=== PATIENT | female | born 1940 | race Caucasian/White ===

== ENCOUNTER → 2021-09-18 11:40 | Outpatient (BNVA) | payer MEDICARE, SELFPAY | PROVIDERS: Family Provider Nurse Practitioner Family; PCP Nurse Practitioner Family; Visit Provider Nurse Practitioner Family | DX: R30.0 Dysuria (principal); J01.00 Acute maxillary sinusitis, unspecified; I10 Essential (primary) hypertension | CPT/HCPCS: 80053; 80061; 84443; 85007; 85027 ==

== ENCOUNTER → 2022-08-25 16:36 | Outpatient (BNVA) | payer MEDICARE, SELFPAY | PROVIDERS: Family Provider Nurse Practitioner Family; PCP Nurse Practitioner Family; Visit Provider Nurse Practitioner Family | DX: I10 Essential (primary) hypertension (principal); N39.0 Urinary tract infection, site not specified; J01.00 Acute maxillary sinusitis, unspecified | CPT/HCPCS: 80053 ==

== ENCOUNTER → 2022-11-20 16:32 | Outpatient (BNVA) | payer MEDICARE, SELFPAY | PROVIDERS: Family Provider Nurse Practitioner Family; PCP Nurse Practitioner Family; Visit Provider Nurse Practitioner Family | DX: N39.0 Urinary tract infection, site not specified (principal); I48.91 Unspecified atrial fibrillation; I10 Essential (primary) hypertension; R00.2 Palpitations | CPT/HCPCS: 80053; 80061; 84443 ==

== ENCOUNTER → 2022-12-08 13:58 | Outpatient (BNVA) | payer MEDICARE, SELFPAY | PROVIDERS: Family Provider Nurse Practitioner Family; PCP Nurse Practitioner Family; Visit Provider Internal Medicine Cardiovascular Disease | DX: I48.91 Unspecified atrial fibrillation (principal); R60.9 Edema, unspecified; R00.2 Palpitations; I10 Essential (primary) hypertension | CPT/HCPCS: 99204 ==

== ENCOUNTER 2022-12-10 12:50 | Observation (INO) | payer MEDICARE, OTHER, SELFPAY ==
[2022-12-10] VITALS (64 sets, daily range): BP systolic 119–157; BP diastolic 70–128; PULSE 63–121; RESP 16–29; TEMP 36.6–36.9; O2SAT 81–98; BMI 29.2
--- NOTE | 2022-12-10 13:02 | ECG_ITS ---
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 Measurements Intervals Gray Rate: 113 P: 0 MS: 0 QRS: 27 QRSD: 86 T: 0 QT: 297 QTc: 409 Interpretive Statements ATRIAL FIBRILLATION WITH RAPID VENTRICULAR RESPONSE LOW QRS VOLTAGE IN PRECORDIAL LEADS [QRS DEFLECTION < 1.0 mV IN CHEST LEADS] NONSPECIFIC T-WAVE ABNORMALITY ABNORMAL RHYTHM ECG INTERPRETATION BASED ON A DEFAULT AGE OF 40 YEARS Compared to ECG 08/26/2018 18:25:49 Sinus rhythm no longer present T-wave abnormality still present Electronically Signed On 12-10-2022 16:47:39 CDT by Mario Longoria M.D. [email or web address] [email or web address].[email or web address]/store/NU/[id number] f
--- NOTE | 2022-12-10 13:07 | ED_ITS ---
HPI - Chest Pain General: Chief Complaint: Chest Pain Stated Complaint: physician sent, chest heavy, had afib last week Time Seen by Provider: 12/10/22 13:06 History of Present Illness: Ms. Rodríguez is an 82-year-old lady with history of hypertension and relatively new diagnosis of atrial fibrillation presenting the emergency department for chest pain. She has a longstanding history of dealing with generalized malaise and occasional palpitations however only recently diagnosed with A-fib. She has been on metoprolol and Xarelto. Last night she had worse pain while lying down which is substernal and radiates to the bilateral upper and lower extremities. Moderate to severe in intensity when present. Currently improved. No other specific changes in health, exacerbating, or alleviating factors identified. Onset (ago): hour(s) Onset: during rest Pain location: substernal Pain radiation: right arm, left arm and other Quality: aching Review of Systems General: Reports: 10 or more systems reviewed and unremarkable except in HPI and below PFSH ED PFSH: Medical History Hypertension Social History Smoking and tobacco status: never smoked Second hand smoke exposure: No Alcohol intake: never Substance/Drug Use: never Caregiver/support person: Yes (family) Lives independently: Yes Marital status: service: No Current occupational status: retired Current gender identity: Female Special lu needs: No Physical Exam Const: COMMON NORMALS: alert GENERAL APPEARANCE: cooperative and well developed HENMT: COMMON NORMALS: normocephalic and atraumatic HEAD & SCALP: normocephalic and atraumatic Eye: COMMON NORMALS: conjunctivae normal CONJUNCTIVA: Yes conjunctivae normal SCLERA: sclerae normal Neck/C-Spine: COMMON NORMALS: supple GENERAL: Yes trachea midline Resp: COMMON NORMALS: clear to auscultation bilaterally EFFORT & INSPECTION: Yes able to speak in complete sentences AUSCULTATION: clear to auscultation bilaterally Cardio: RATE: tachycardic RHYTHM: abnormal rhythm irregularly irregular GI: COMMON NORMALS: Soft to palpation PALPATION: Yes Soft to palpation and No Tenderness to palpation present (GI) Extremity: GENERAL: Yes normal exam except as noted and No edema Neuro: COMMON NORMALS: moves all extremities SENSORIUM/ORIENTATION: Yes alert and No Orientation impaired Psych: COMMON NORMALS: mental status grossly normal and Normal thought process present THOUGHT PROCESS: Normal thought process present Course Vital Signs: Vital signs: Vital Signs Temperature 98.3 F 12/12/22 11:39 Pulse Rate 96 12/12/22 12:40 Respiratory Rate 17 12/12/22 12:40 Blood Pressure 101/63 12/12/22 12:40 Pulse Oximetry 94 12/12/22 12:40 Oxygen Delivery Me thod Room Air 12/12/22 11:39 MDM - Chest Pain Medical Decision Making 82-year-old lady presenting with chest pain and A-fib. Exam as above. Nontoxic. EKG demonstrates atrial fibrillation with rapid ventricular sponsor and nonspecific sensation abnormalities. No STEMI. Labs with no significant hematologic or metabolic abnormalities to explain symptoms. Minimal transaminitis of uncertain etiology. Negative range 2 hour delta troponin but BNP is elevated. Chest x-ray with no lobar consolidation or pneumothorax, mild cardiomegaly. With ultrasound with cholelithiasis though no evidence of cholecystitis. Mild fatty liver. The results of ED evaluation were discussed with the patient including plan for admission due to requirement for level of care not available if discharged to prevent significant worsening/deterioration. Patient agreeable with plan. Discussed with hospitalist service who was agreeable to admit patient. Medical Records I reviewed the patient's medical records. Lab Data I reviewed the patient's lab results. 12/11/22 03:07 12/11/22 03:07 Radiology Impressions Chest X-Ray 12/10/22 13:11 IMPRESSION: No acute findings. Laboratory Results WBC 8.5 10^3/uL (4.0-10.0) 12/10/22 13:21 RBC 4.60 10^6/uL (4.1-5.3) 12/10/22 13:21 Hgb 13.1 g/dL (11.5-15.3) 12/10/22 13:21 Hct 41.3 % (37.0-47.0) 12/10/22 13:21 MCV 89.8 fl (81-99) 12/10/22 13:21 MCH 28.5 pg (28.0-34.0) 12/10/22 13:21 MCHC 31.7 g/dL (30.0-36.0) 12/10/22 13:21 RDW 14.1 % (12.1-15.1) 12/10/22 13:21 Plt Count 186 10^3/cmm (130-400) 12/10/22 13:21 MPV 9.9 fL (7.4-10.4) 12/10/22 13:21 Neut % (Auto) 72.0 % 12/10/22 13:21 Lymph % (Auto) 17.5 % 12/10/22 13:21 [place] % (Auto) 5.3 % 12/10/22 13:21 Eos % (Auto) 4.1 % 12/10/22 13:21 Baso % (Auto) 0.9 % 12/10/22 13:21 Neut # (Auto) 6.14 10^3/uL (1.8-7.7) 12/10/22 13:21 Lymph # (Auto) 1.5 10^3/uL (0.8-4.8) 12/10/22 13:21 [place] # (Auto) 0.5 10^3/uL (0.2-0.9) 12/10/22 13:21 Eos # (Auto) 0.4 10^3/uL (0.0-0.8) 12/10/22 13:21 Baso # (Auto) 0.1 10^3/uL (0.0-0.1) 12/10/22 13:21 Nucleated RBC % (auto) 0 % 12/10/22 13:21 Nucleated RBCs # 0.0 /100WBC 12/10/22 13:21 Sodium 141 mmol/L (136-145) 12/10/22 13:21 Potassium 4.0 mmol/L (3.5-5.1) 12/10/22 13:21 Chloride 104 mmol/L (98-107) 12/10/22 13:21 Carbon Dioxide 26 mmol/L (22-29) 12/10/22 13:21 Anion Gap 15.0 (5-19) 12/10/22 13:21 BUN 19 mg/dL (8-23) 12/10/22 13:21 Creatinine 1.0 mg/dL (0.5-0.9) H 12/10/22 13:21 GFR Calculation Not Reportable 12/10/22 13:21 Glucose 92 mg/dL (65-115) 12/10/22 13:21 Calculated Osmolality 294 mOsm/kg (285-295) 12/10/22 13:21 Calcium 10.1 mg/dL (8.5-10.5) 12/10/22 13:21 Magnesium 2.1 mg/dL (1.7-2.3) 12/10/22 13:21 Total Bilirubin 0.5 mg/dL (0.15-1.2) 12/10/22 13:21 AST 38 U/L (0-32) H 12/10/22 13:21 ALT 41 U/L (0-33) H 12/10/22 13:21 Alkaline Phosphatase 107 U/L (35-105) H 12/10/22 13:21 Troponin T Baseline 21 ng/L (0-10) H 12/10/22 13:21 Troponin T 120 Minute 13.80 ng/L (0-10) H 12/10/22 16:20 Delta Troponin T -7.20 ABS# (0-10) L 12/10/22 16:20 NT-Pro-B Natriuret Pep 3048 pg/mL (0-450) H 12/10/22 13:21 Total Protein 7.3 g/dL (6.6-8.7) 12/10/22 13:21 Albumin 4.3 g/dL (3.5-5.2) 12/10/22 13:21 Globulin 3.0 g/dL (1.3-4.6) 12/10/22 13:21 Lipase 34 U/L (13-60) 12/10/22 13:21 TSH 1.25 uIU/mL (0.27-4.20) 12/10/22 16:20 Discharge Plan Discharge Patient Disposition: Placed in Observation Admit Provider: Vanessa Oconnor Clinical Impression: Chest pain, Atrial fibrillation Discharge Diet: Usual diet Discharge Activity: Resume usual activity Coding Level of Care Code ED Hedge Fund Trader for Devyn Adams
--- NOTE | 2022-12-10 13:11 | XRR_ITS ---
PROCEDURE INFORMATION: Exam: XR Chest Exam date and time: 12/10/2022 1:28 PM Age: 82 years old Clinical indication: Pain; Angina pectoris; Additional info: Cp TECHNIQUE: Imaging protocol: Radiologic exam of the chest. Views: 1 view. COMPARISON: CR XR chest 1V [id number] 08/26/2018 7:13 PM FINDINGS: Lungs: There is no consolidation. Pleural spaces: There is no pleural effusion or pneumothorax. Heart/Mediastinum: There is mild enlargement of the cardiac silhouette. Bones/joints: There is moderate degenerative disease at both shoulders. No acute fracture. XR/XR chest 1V portable [id number] IMPRESSION: No acute findings.
[2022-12-10 14:02] LABS: Basophils # 0.1 10^3/uL (0.0-0.1); Basophils % 0.9 %; Eosinophils # 0.4 10^3/uL (0.0-0.8); Eosinophils % 4.1 %; Hematocrit 41.3 % (37.0-47.0); Hemoglobin 13.1 g/dL (11.5-15.3); Lymphocytes # 1.5 10^3/uL (0.8-4.8); Lymphocytes % 17.5 %; Mean Corpuscular HGB Conc 31.7 g/dL (30.0-36.0); Mean Corpuscular Hemoglobin 28.5 pg (28.0-34.0); Mean Corpuscular Volume 89.8 fl (81-99); Mean Platelet Volume 9.9 fL (7.4-10.4); Monocytes # 0.5 10^3/uL (0.2-0.9); Monocytes % 5.3 %; Neutrophils # 6.14 10^3/uL (1.8-7.7); Nucleated Red Blood Cells % 0 %; Platelet Count 186 10^3/cmm (130-400); Red Cell Distribution Width 14.1 % (12.1-15.1); White Blood Count 8.5 10^3/uL (4.0-10.0)
[2022-12-10 14:12] LABS: Troponin(5th) Baseline 21 ng/L (0-10)
[2022-12-10 14:18] LABS: Alanine Aminotransferase 41 U/L (0-33); Albumin Level 4.3 g/dL (3.5-5.2); Alkaline Phosphatase 107 U/L (35-105); Aspartate Amino Transferase 38 U/L (0-32); Blood Urea Nitrogen 19 mg/dL (8-23); Calcium 10.1 mg/dL (8.5-10.5); Carbon Dioxide 26 mmol/L (22-29); Chloride 104 mmol/L (98-107); Glucose 92 mg/dL (65-115); Magnesium 2.1 mg/dL (1.7-2.3); NT Pro B Type Natriuretic Pept 3048 pg/mL (0-450); Osmolality Calculated 294 mOsm/kg (285-295); Sodium 141 mmol/L (136-145); Total Bilirubin 0.5 mg/dL (0.15-1.2); Total Protein 7.3 g/dL (6.6-8.7)
--- NOTE | 2022-12-10 14:26 | US_ITS ---
WS: [id number] ULTRASOUND ABDOMEN LIMITED CLINICAL INFORMATION: Transaminitis, chest pain COMPARISON: None. FINDINGS: Liver Size: Normal. Craniocaudal length: 14.1 cm. Echogenicity: Coarse surface nodularity: None. Mass (size and location): None. Bile ducts Intrahepatic ducts: Normal. Common bile duct diameter: 0.5 cm. Gallbladder Dense shadowing cholelithiasis gallstones: Present gallbladder sludge: None. Gallbladder wall thickening: None. Pericholecystic fluid: None. Sonographic Brizuela sign: Absent. Pancreas Normal as visualized. Spleen Splenomegaly: None. Craniocaudal length: cm. Right kidney: Normal. Hydronephrosis: None. Size: 8.9 cm x 3.7 cm x 4.0 cm. Abdominal aorta and IVC Visualized portions are normal. Ascites: None. IMPRESSION: 1. Cholelithiasis. Negative Brizuela sign. 2. No evidence of gallbladder wall thickening or pericholecystic fluid. 3. Normal common bile duct. 4. Mild diffuse fatty filtration of the liver.
[2022-12-10 14:47] LABS: Lipase 34 U/L (13-60)
--- NOTE | 2022-12-10 17:34 | ECG_ITS ---
[facility] Test Date: 2022-12-11 Pat Name: Bina Rodríguez Department: Room: 108 Gender: Female Bass Singer: : 1940 Requested By: Vanessa Oconnor Order Number: [id number] Haroldo MD: Terrance Gonsalves M.D. Interpretive Statements NAME OF STUDY: LEXISCAN SESTAMIBI STRESS TEST INDICATION: [Chest Pain, ] Procedure: At the baseline, the blood pressure was 159/100mmHg with a heart rate of 93 bpm. The electrocardiogram showed atrial fibrillation, normal axis with normal ST and T's. The Lexiscan was infused over a period of 20 seconds. A total of 0.4 mg of Lexiscan was infused. The stress phase was continued for a total of 5 minutes. Heart rate was at the end of stress phase was 114 bpm and a blood pressure of 153/101 mmHg. The EKG at the peak infusion revealed atrial fibrillation with no significant ST-T wave changes. Sestamibi was injected 20 seconds after the Lexiscan infusion. Blood pressure at the end of recovery phase was 143/101 mmHg with a heart rate of 100 bpm. Conclusion: 1. Normal EKG response to Lexiscan infusion 2. No Lexiscan induced chest pain or cardiac arrhythmia. 3. Normal blood pressure and heart rate response. 4. Sestamibi/sestamibi perfusion scan pending; see separate report. Electronically Signed On 01-13-2023 10:59:06 CDT by Terrance Gonsalves M.D. [email or web address].[employer]/store/OM/[id number]
--- NOTE | 2022-12-10 17:36 | PM.HP ---
Providers/Chief Complaint Primary Care Provider: Samantha Coello NP Chief Complaint: physician sent, chest heavy, had afib last week History of Present Illness Bina Rodríguez is a 82 year old female Recently diagnosed with atrial fibrillation, seen by cardiology in the office on December 08, 2022 at which point an echocardiogram was ordered but is yet to be completed. She had been recommended a few days prior to this visit to start metoprolol and Xarelto but had not done so by December 08. Today she presents to the emergency room complaining of chest pain. Pain is located in the midsternal region. Radiating into the arms. No dyspnea. Saturating well on room air currently. no known h/o CAD Review of Systems General: Reports: 10 or more systems reviewed and unremarkable except in HPI and below Const: Denies: fever(s), chills or body aches Eyes: Denies: change in vision, blurry vision or photophobia ENMT: Reports: hoarseness; Denies: throat pain, enlarged tonsils, odynophagia or nasal congestion Card: Denies: chest pain, palpitations, irregular heart rhythm, edema, swelling of feet/ankles, lightheadedness, pre-syncope, dyspnea on exertion or orthopnea Resp: Denies: dyspnea, productive cough, non-productive cough, wheezing, stridor, pain on inspiration, change in phlegm color, hemoptysis or chest congestion GI: Denies: abdominal pain, nausea, vomiting, hematemesis, coffee ground emesis, dysphagia, heartburn, diarrhea, constipation, GI cramping, change in stool character, hematochezia or melena : Denies: flank pain, difficulty voiding, dysuria, urinary frequency, urinary urgency, urinary hesitancy or hematuria Musc: Denies: neck pain, back pain, extremity pain, joint swelling, joint warmth or deformity Neuro: Denies: headache(s), numbness in extremities, weakness in extremities, sensory changes, difficulty walking, frequent falls, dizziness, vertigo, behavioral changes, Slurred speech present or seizure-like activity Psych: Denies: anxiety, depression, suicidal ideation or homicidal ideation Endo: Denies: polyuria, polydipsia, tired all the time, cold intolerance or hot flashes Benja/Lymph: Denies: easy bruising or easy bleeding Medications/Allergies Home Medications Medication Instructions Recorded Confirmed Last Taken Type oxybutynin chloride 10 mg 10 mg PO DAILY 90 days #90 tabs 08/27/22 12/10/22 12/10/22 Rx tablet,extended release 24 hr multivitamin 1 tab PO DAILY 12/08/22 12/10/22 12/10/22 History rivaroxaban 15 mg tablet (Xarelto) 15 mg PO DAILY #30 tabs 12/08/22 12/10/22 12/09/22 Rx acetaminophen 500 mg tablet 500 mg PO Q6H PRN Pain 12/10/22 12/10/22 Unknown History biotin 10,000 mcg chewable tablet 10,000 mcg PO DAILY 12/10/22 12/10/22 12/10/22 History (Hair, Skin and Nails (biotin)) lutein 6 mg capsule 6 mg PO DAILY 12/10/22 12/10/22 12/10/22 History metoprolol tartrate 25 mg tablet 25 mg PO BID 12/10/22 12/10/22 12/10/22 History zolpidem 5 mg tablet (Ambien) 5 mg PO BEDTIME PRN insomnia 12/10/22 12/10/22 Unknown History Allergies Allergy/AdvReac Type Severity Reaction Status Date / Time erythromycin base Allergy Severe ALGY-Rash Verified 12/08/22 09:21 nitrofurantoin Allergy Severe ADR/ALGY-Pa Verified 12/08/22 09:21 lpitations ceftriaxone [From Rocephin] Allergy Intermediate ALGY-Rash Verified 12/08/22 09:21 doxycycline Allergy Intermediate ADR-Cramping Verified 12/08/22 09:21 of the Muscles Penicillins Allergy Unknown Verified 12/08/22 09:21 prednisone Allergy Unknown Verified 12/08/22 09:21 Sulfa (Sulfonamide Allergy Unknown Verified 12/08/22 09:21 Antibiotics) PFSH Acute PFSH: Medical History Hypertension Social History Smoking and tobacco status: never smoked Second hand smoke exposure: No Alcohol intake: never Substance/Drug Use: never Caregiver/support person: Yes (family) Lives independently: Yes Marital status: service: No Current occupational status: retired Current gender identity: Female Special lu needs: No Vitals/I&O/Wt Last Vital Signs Temp 97.8 F 12/10/22 12:53 Pulse 102 H 12/10/22 16:00 Resp 18 12/10/22 12:53 BP 136/86 12/10/22 15:00 Pulse Ox 93 12/10/22 16:00 O2 Del Method Room Air 12/10/22 13:55 Weight last 48 hrs Weight 72.575 kg Physical Exam Narrative: General: No acute distress, AO x3 HEENT: PERRLA, pupils bilaterally equal and reactive, pallors not present Chest: Normal vesicular breath sounds, no added sounds, equal good air entry bilaterally CVS: S1-S2 regular, no murmurs, no tachycardia, no gallops, no rubs Abdomen: Soft, nontender, no organomegaly, bowel sounds present Neuro: No focal deficits, no facial deformity, AO x3, power 5/5 in all limbs Data 12/10/22 13:21 12/10/22 13:21 A&P Assessment and plan (1) Chest pain: Patient without any acute ST-T wave changes. Baseline troponin 21, trending down to 13 with a negative delta of 7 at 2 hours. Pending 6-hour trend. Given her chest pain and recently diagnosed atrial fibrillation, will pursue ischemic workup with cardiac stress test in the a.m. (2) Atrial fibrillation: Currently heart rate ranging between 100 to 110 bpm. Start metoprolol 25 mg p.o. twice daily Continue Xarelto 15 mg p.o. daily as recently prescribed from cardiology. Attestations Medical Necessity Statement*: Anticipate less than 2 midnight stay for stress test, evaluation of chest pain. Coding Level of Care Code Acute Code for [facility] Diagnoses Chest pain R07.9 Atrial fibrillation I48.91
[2022-12-10 18:23] LABS: Thyroid Stimulating Hormone 1.25 uIU/mL (0.27-4.20)
[2022-12-10] MEDS: FUROsemide 20 mg Tablet PO (19:21)
[2022-12-10] MEDS: metoprolol tartrate 25 mg Tablet PO (19:22)
[2022-12-10 19:58] LABS: Troponin 5 6HR 17.45 ng/L (0-10)
[2022-12-10] MEDS: acetaminophen 325 mg Tablet 650 MG PO (20:02)
[2022-12-10 20:06] LABS: Troponin 5 6HR Delta -3.55 ng/L (0-12)
--- NOTE | 2022-12-10 20:10 | ECG_ITS ---
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 Measurements Intervals [place] Rate: 96 P: 0 KS: 0 QRS: 24 QRSD: 90 T: -14 QT: 338 QTc: 427 Interpretive Statements ATRIAL FIBRILLATION LOW QRS VOLTAGE IN PRECORDIAL LEADS [QRS DEFLECTION < 1.0 mV IN CHEST LEADS] NONSPECIFIC ST & T-WAVE ABNORMALITY Compared to ECG 12/10/2022 13:02:31 No significant changes Electronically Signed On 12-12-2022 9:32:23 CDT by Terrance Gonsalves M.D. [email or web address].[employer]/store/OM/[id number]/[id number]
[2022-12-11] VITALS (10 sets, daily range): BP systolic 94–143; BP diastolic 69–101; PULSE 86–110; RESP 14–22; TEMP 36.5–37; O2SAT 91–94
[2022-12-11 04:09] LABS: Basophils # 0.1 10^3/uL (0.0-0.1); Basophils % 0.6 %; Eosinophils # 0.4 10^3/uL (0.0-0.8); Eosinophils % 4.9 %; Hematocrit 38.1 % (37.0-47.0); Lymphocytes # 2.4 10^3/uL (0.8-4.8); Lymphocytes % 31.2 %; Mean Corpuscular HGB Conc 31.5 g/dL (30.0-36.0); Mean Corpuscular Hemoglobin 27.7 pg (28.0-34.0); Mean Platelet Volume 9.4 fL (7.4-10.4); Monocytes # 0.6 10^3/uL (0.2-0.9); Monocytes % 7.7 %; Neutrophils # 4.31 10^3/uL (1.8-7.7); Neutrophils % 55.3 %; Nucleated Red Blood Cells % 0 %; Platelet Count 178 10^3/cmm (130-400); Red Blood Count 4.33 10^6/uL (4.1-5.3); Red Cell Distribution Width 13.7 % (12.1-15.1); White Blood Count 7.8 10^3/uL (4.0-10.0)
[2022-12-11 04:33] LABS: Alanine Aminotransferase 37 U/L (0-33); Albumin Level 3.9 g/dL (3.5-5.2); Alkaline Phosphatase 97 U/L (35-105); Anion Gap 13.8 (5-19); Aspartate Amino Transferase 33 U/L (0-32); Blood Urea Nitrogen 17 mg/dL (8-23); Calcium 9.7 mg/dL (8.5-10.5); Carbon Dioxide 26 mmol/L (22-29); Chloride 108 mmol/L (98-107); Globulin 2.6 g/dL (1.3-4.6); Glucose 93 mg/dL (65-115); Magnesium 2.1 mg/dL (1.7-2.3); Osmolality Calculated 299 mOsm/kg (285-295); Potassium 3.8 mmol/L (3.5-5.1); Sodium 144 mmol/L (136-145); Total Bilirubin 0.5 mg/dL (0.15-1.2); Total Protein 6.5 g/dL (6.6-8.7)
[2022-12-11] MEDS: regadenoson 0.4 Mg/5 ml Syringe IVP (07:16)
[2022-12-11] MEDS: ondansetron 2 mg/ML SDV 2 mL 4 MG IVP (07:43)
--- NOTE | 2022-12-11 08:00 | NMCV_ITS ---
NM frankie perf SPECT r/s* [id number] Bina Rodríguez Age: 82 Gender: F : 1940 Exam Date: 12/11/2022 06:31 Ordering Phys: Vanessa Oconnor MD Technologist: FABIANO Bo Exam Location: [facility] Indications: CHEST PAIN STRESS TEST [facility] IMAGE PROTOCOL Rest/Stress 1 Lexiscan Day Radiopharmaceutical Dose (mCi) Administration Site Administered by Rest: Tc-99m 10.7 IV FABIANO Santana Sestamibi Stress:Tc-99m 32.7 IV FABIANO Santana Sestamibi Rest: 11-Dec-2022 60 Discovery 630 Stress: 11-Dec-2022 30 Discovery 630 0.4mg Lexiscan. Images obtained in supine and prone position. SPECT RESULTS Technical Quality: Excellent Raw Data Analysis: Normal Image Corrections: No attenuation or motion correction applied Summed Stress Score: 5 Summed Rest Score: 2 Summed Difference Score: 3 PERFUSION FINDINGS There is a small sized, reversible perfusion defect noted in apical wall. This is consistent with small surgery of ischemia in LAD territory. Small to medium sized, partially reversible perfusion defect is also noted in apical lateral wall. 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 FUNCTIONAL RESULTS (calculated via Gated SPECT) Stress Image LV EF (%): 46 Stress EDV (mL):90 TID: 1.07 Stress ESV (mL):49 FUNCTIONAL FINDINGS: LV systolic function is mildly reduced with EF of 46%. Mild global hypokinesis seen. IMPRESSIONS 1. Abnormal myocardial perfusion imaging with small area of ischemia seen in LAD territory. 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 2. LV systolic function is mildly reduced with EF of 46%. Terrance Gonsalves MD (Electronically Signed) Final Date: 11 December 2022 11:42 S
[2022-12-11] MEDS: acetaminophen 325 mg Tablet 650 MG PO (08:51)
[2022-12-11] MEDS: metoprolol tartrate 25 mg Tablet PO ×2 (08:51→21:34)
[2022-12-11] MEDS: rivaroxaban 10 mg Tablet 15 MG PO (08:51)
[2022-12-11] MEDS: pantoprazole DR 40 mg Tablet PO (08:51)
--- NOTE | 2022-12-11 10:16 | PC.CHAP ---
Pastoral Care Encounter/Spiritual Assessment Type of Contact [] Declined stores assistant visit [] Patient/Family/Request visit [] Outpatient visit [] Follow-up visit [] Physician referral [] Code/Alert [x] Routine visit [] Staff referral [] Actively dying [] Patient sleeping [] Family support [] [] Out of room [] Palliative care [] [x] Receiving care in room [] Pre-surgical visit [] Trauma [] Long length of stay [] ICU visit [] Other: Relational/Emotional Strength [x] Patient feels connected with others/family/visitors/staff [] Distress [] Loneliness/isolation [] Abandonment Spirituality of Patient [x] Person of Priya [] Attends Jewish of their Priya [x] Believes in Prayer [] Reads Bible or Jain materials [] There are Spiritual issues to be addressed Yard Brakeman Interventions [x] Prayer [x] Active listening [x] Non-anxious presence [x] Spiritual/emotional support [] Crisis/trauma care [x] Spiritual counseling [] Bereavement support [] Provided bereavement packet [] Provided Bible/devotional materials [] Provided toy/stuffed animal, coloring book to patient or family member [] Provided Communion [] Anointing/[place] [] Salvation [x] Completed spiritual assessment [] Other: Impact on Illness or Injury [] Angry [] Fearful [] Anxious [] Often cries [] Exhaustion [] Unable to work [] Unable to attend buddhist [] Unable to walk/stand [] Unable to read [] Unable to drive [] Unable to eat/drink [] Unable to sleep [] Unable to be with family [] Patient intubated [] Other: Summary stress test waiting on doctor for results +3 has a good attitude well go home Time spent with patient 1o mins
--- NOTE | 2022-12-11 15:07 | PM.PN ---
Subjective Subjective: Chest pain is improving today. She feels less short of breath today. She completed a stress test yesterday which showed Abnormal myocardial perfusion imaging with small area of ischemia seen in ?LAD territory.? 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 LV systolic function is mildly reduced with EF of 46%. Medications: Reviewed: Yes Vitals/I&O/Wt Last Vital Signs Temp 97.7 F 12/11/22 11:32 Pulse 86 12/11/22 11:32 Resp 18 12/11/22 11:32 BP 94/77 12/11/22 11:32 Pulse Ox 92 12/11/22 11:32 O2 Del Method Room Air 12/11/22 11:32 12/11/22 12/11/22 12/11/22 06:59 14:59 22:59 Intake Total 240 / 240 Output Total 450 / 450 Balance -450 / -210 240 / 240 Weight last 48 hrs Weight 72.575 kg Physical Exam Narrative: General: No acute distress, AO x3 HEENT: PERRLA, pupils bilaterally equal and reactive, pallors not present Chest: Normal vesicular breath sounds, no added sounds, equal good air entry bilaterally CVS: S1-S2 regular, no murmurs, no tachycardia, no gallops, no rubs Abdomen: Soft, nontender, no organomegaly, bowel sounds present Neuro: No focal deficits, no facial deformity, AO x3, power 5/5 in all limbs ext: mild b/l pitting edema Data 12/11/22 03:07 12/11/22 03:07 A&P Assessment and plan (1) Chest pain: Patient without any acute ST-T wave changes. Troponin trend 21--> 13--> 17 without significant delta. Stress test today shows Abnormal myocardial perfusion imaging with small area of ischemia seen in ?LAD territory.? 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 LV systolic function is mildly reduced with EF of 46%. cardiology consult to assess for angiogram (2) Atrial fibrillation: Currently heart rate ranging between 80-100 bpm continue metoprolol 25 mg p.o. twice daily; Soft BP 94/77 this, will hold off on increasing dose Hold Xarelto 15 mg as anticipate angiogram. last dose taken this morning at 9am. (3) CHF (congestive heart failure): acute heart failure with preserved EF Echo shows Normal left ventricular size, systolic function and wall ?thickness, with no regional wall motion abnormalities. Left ?ventricular ejection fraction is estimated at 55 %. Mild mitral and tricuspid valve regurgitation. Pulmonary artery pressure estimated at 38 mm Hg. Elevated BNP Patient received 20 mg po lasix , feels breathing is improved today Start lasix 20mg po daily Plan Full code Dvt ppx: on xarelto Attestations Medical Necessity Statement*: abnormal stress test, cardiology consult , start po lasix Coding Level of Care Code Acute Code for Chg Fwd Moderate MDM includes number and complexity of problems actively addressed during encounter, amount and/or complexity of data reviewed/ordered and described risk of complication, morbidity or mortality of management as documented Diagnoses Chest pain R07.9 Atrial fibrillation I48.91 CHF (congestive heart failure) I50.9
[2022-12-11] MEDS: FUROsemide 20 mg Tablet PO (15:55)
--- NOTE | 2022-12-11 17:34 | USCV_ITS ---
Bina Rodríguez Age: 82 Gender: F : 1940 Exam Date: 12/11/2022 03:23 Ordering Phys: Vanessa Oconnor MD Technologist: CECILIA [place]am Location[place] [facility] [place]ication: new onset atrial fibrillation. BP: 126 / 88 HR: 97 Rhythm: Atrial fibrillation Technical Quality: Adequate MEASUREMENTS (Male / Female) Normal Values 2D ECHO LV Diastolic Diameter PLAX 4.7 cm 4.2 - 5.9 / 3.9 - 5.3 cm LV Systolic Diameter PLAX 3.4 cm IVS Diastolic Thickness 1.2 cm 0.6 - 1.0 / 0.6 - 0.9 cm IVS Systolic Thickness 1.3 cm LVPW Diastolic Thickness 1.2 cm 0.6 - 1.0 / 0.6 - 0.9 cm LVPW Systolic Thickness 1.2 cm LVOT Diameter 1.8 cm LV Ejection Fraction 2D Teich 55.3 % LV Ejection Fraction MOD 2C 56.0 % LV Ejection Fraction 2C AL 56.3 % LA Diameter 4.6 cm LA Width 4.2 cm LA Height 6.6 cm RA Width 4.4 cm RA Height 4.9 cm Aorta at Sinotubular Diameter 3.0 cm IVC Diameter 2.2 cm M-MODE Aortic Annulus Diameter 3.0 cm LA Ao Ratio MM 1.4 MV E Point Septal Separation 1.1 cm DOPPLER AV Peak Velocity 99.0 cm/s LVOT Peak Velocity 60.0 cm/s AV Area Cont Eq vti 1.4 cm squared AV Area Cont Eq pk 1.5 cm squared MV Area PHT 3.7 cm squared MV E' Velocity 51.0 cm/s Mitral E to MV E' Ratio 9.4 Mitral E to LV E' Lateral Ratio 8.0 Mitral E to LV E' Septal Ratio 11.6 TR Peak Velocity 241.3 cm/s TR Peak Gradient 23.3 mmHg TV Peak E Velocity 31.0 cm/s Right Atrial Pressure 10.0 mmHg Pulmonary Artery Systolic Pressu 33.3 mmHg PV Peak Velocity 67.0 cm/s RV Acceleration Time 0.1 s RV Ejection Time 0.3 s RV AcT/ET 0.4 FINDINGS Left Ventricle Normal left ventricular size, systolic function and wall thickness, with no regional wall motion abnormalities. Left ventricular ejection fraction is estimated at 55 %. Rhythm precludes evaluation of diastolic function. Right Ventricle Normal right ventricular size and systolic function. Right ventricular systolic pressure 38 mmHg. Right Atrium Normal right atrial size. Left Atrium Moderately increased left atrial size. Mitral Valve Structurally normal mitral valve. Mild mitral annular calcification. No mitral valve stenosis. Mild mitral valve regurgitation. Aortic Valve Structurally normal trileaflet aortic valve. No aortic valve stenosis. Trace aortic valve regurgitation. Tricuspid Valve Structurally normal tricuspid valve. No tricuspid valve stenosis. Mild tricuspid valve regurgitation. Pulmonic Valve Pulmonic valve not well visualized. Pericardium No pericardial effusion. Aorta Normal size aortic root and proximal ascending aorta. IVC Dilated IVC with decreased respiratory variation. CONCLUSIONS 1. Normal left ventricular size, systolic function and wall thickness, with no regional wall motion abnormalities. Left ventricular ejection fraction is estimated at 55 %. 2. Mild mitral and tricuspid valve regurgitation. 3. Pulmonary artery pressure estimated at 38 mm Hg. 4. Direct comparison to previous study dated 08/26/2018 is not possible due to difficult study. Heather Fay MD (Electronically Signed) Final Date: 11 December 2022 13:19 S
--- NOTE | 2022-12-11 18:13 | P.CONIM_ITS ---
Providers/Reason For Consult Consulting Physician/Specialty*: Terrance Gonsalves MD/ Cardiology Reason for Consult*: Chest pain/ abnormal stress test Requesting Physician: Dr Oconnor Attending Physician: Vanessa Oconnor MD Primary Care Provider: Samantha Coello NP History of Present Illness History of Present Illness Bina Rodríguez is a 82 year old female with past medical history of recently diagnosed atrial fibrillation was presented to hospital with on and off generalized body aches. Also felt pressure in the chest, arms, legs. Troponins did not go up.EKG shows atrial fibrillation. ECHO shows normal LV systolic function. Cardiology was consulted as. 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 No active chest pain Review of Systems General: Reports: 10 or more systems reviewed and unremarkable except in HPI and below Const: Denies: fever(s), chills or body aches Eyes: Denies: change in vision, blurry vision or photophobia ENMT: Reports: hoarseness; Denies: throat pain, enlarged tonsils, odynophagia or nasal congestion Card: Denies: chest pain, palpitations, irregular heart rhythm, edema, swelling of feet/ankles, lightheadedness, pre-syncope, dyspnea on exertion or orthopnea Resp: Denies: dyspnea, productive cough, non-productive cough, wheezing, stridor, pain on inspiration, change in phlegm color, hemoptysis or chest congestion GI: Denies: abdominal pain, nausea, vomiting, hematemesis, coffee ground emesis, dysphagia, heartburn, diarrhea, constipation, GI cramping, change in stool character, hematochezia or melena : Denies: flank pain, difficulty voiding, dysuria, urinary frequency, urinary urgency, urinary hesitancy or hematuria Musc: Denies: neck pain, back pain, extremity pain, joint swelling, joint warmth or deformity Neuro: Denies: headache(s), numbness in extremities, weakness in extremities, sensory changes, difficulty walking, frequent falls, dizziness, vertigo, behavioral changes, Slurred speech present or seizure-like activity Psych: Denies: anxiety, depression, suicidal ideation or homicidal ideation Endo: Denies: polyuria, polydipsia, tired all the time, cold intolerance or hot flashes Benja/Lymph: Denies: easy bruising or easy bleeding Medications/Allergies Home Medications Medication Instructions Recorded Confirmed Last Taken Type oxybutynin chloride 10 mg 10 mg PO DAILY 90 days #90 tabs 08/27/22 12/10/22 12/10/22 Rx tablet,extended release 24 hr multivitamin 1 tab PO DAILY 12/08/22 12/10/22 12/10/22 History rivaroxaban 15 mg tablet (Xarelto) 15 mg PO DAILY #30 tabs 12/08/22 12/10/22 12/09/22 Rx acetaminophen 500 mg tablet 500 mg PO Q6H PRN Pain 12/10/22 12/10/22 Unknown History biotin 10,000 mcg chewable tablet 10,000 mcg PO DAILY 12/10/22 12/10/22 12/10/22 History (Hair, Skin and Nails (biotin)) lutein 6 mg capsule 6 mg PO DAILY 12/10/22 12/10/22 12/10/22 History metoprolol tartrate 25 mg tablet 25 mg PO BID 12/10/22 12/10/22 12/10/22 History zolpidem 5 mg tablet (Ambien) 5 mg PO BEDTIME PRN insomnia 12/10/22 12/10/22 Unknown History Allergies Allergy/AdvReac Type Severity Reaction Status Date / Time erythromycin base Allergy Severe ALGY-Rash Verified 12/08/22 09:21 nitrofurantoin Allergy Severe ADR/ALGY-Pa Verified 12/08/22 09:21 lpitations ceftriaxone [From Rocephin] Allergy Intermediate ALGY-Rash Verified 12/08/22 09:21 doxycycline Allergy Intermediate ADR-Cramping Verified 12/08/22 09:21 of the Muscles Penicillins Allergy Unknown Verified 12/08/22 09:21 prednisone Allergy Unknown Verified 12/08/22 09:21 Sulfa (Sulfonamide Allergy Unknown Verified 12/08/22 09:21 Antibiotics) Current Medications Generic Name Dose Route Start Last Admin Trade Name Freq PRN Reason Stop Dose Admin Acetaminophen 650 mg 12/10/22 17:32 12/11/22 08:51 Acetaminophen 325 Mg Tablet PO 650 mg Q6H PRN Administration Mild/Mod Pain Or Temp >/= 101 Furosemide 20 mg 12/11/22 15:10 12/11/22 15:55 Furosemide 20 Mg Tablet PO 20 mg DAILY@0800 EDVIN Administration Ondansetron HCl 4 mg 12/11/22 06:42 12/11/22 07:43 Ondansetron 2 Mg/Ml Sdv 2 Ml IVP 4 mg Q2M PRN Administration NAUSEA Pantoprazole Sodium 40 mg 12/11/22 09:00 12/11/22 08:[address] 40 Mg Tablet PO 40 mg DAILY EDVIN Administration Rivaroxaban 15 mg 12/11/22 09:00 12/11/22 08:51 Rivaroxaban 10 Mg Tablet PO 15 mg DAILY EDVIN Administration PFSH Acute PFSH: Medical History Hypertension Social History Smoking and tobacco status: never smoked Second hand smoke exposure: No Alcohol intake: never Substance/Drug Use: never Caregiver/support person: Yes (family) Lives independently: Yes Marital status: service: No Current occupational status: retired Current gender identity: Female Special lu needs: No Vitals/I&O/Wt Last Vital Signs Temp 97.9 F 12/11/22 16:00 Pulse 108 H 12/11/22 16:00 Resp 18 12/11/22 16:00 BP 114/90 12/11/22 16:00 Pulse Ox 91 12/11/22 16:00 O2 Del Method Room Air 12/11/22 16:00 12/11/22 12/11/22 12/11/22 06:59 14:59 22:59 Intake Total 240 / 240 Output Total 450 / 450 Balance -450 / -210 240 / 240 Weight last 48 hrs Weight 160 lb Physical Exam Narrative: GENERAL: Patient is alert, awake and oriented x3. [] NECK: No jugular vein distension. [] HEENT: No cyanosis. No icterus. No pallor. [] HEART: Irregularly irregular LUNGS: Clear to auscultate bilaterally. [] CENTRAL NERVOUS SYSTEM: Grossly nonfocal. [] EXTREMITIES: Lower extremities with no edema Data 12/11/22 03:07 12/11/22 03:07 A&P Assessment and plan (1) Chest pain: (2) Atrial fibrillation: (3) Chronic UTI (urinary tract infection): (4) Hypertension: Plan Patient's chest pain symptoms are atypical. Stress test is showing small sized area of ischemia in LAD territory. I discussed with patient and family in detail all options available. Medical therapy will be preferred as pain is atypical and size of abnormalities not large. Likely symptoms precipitated with if with RVR. Patient and family wants to think till tomorrow and then decide. N.p.o. past midnight. We can uptitrate metoprolol to 50 mg twice daily. Can consider adding amio darone in future if heart rate not improved. Plan on heart monitor at time of discharge. Thank you for involving us with care of this patient. We will continue to follow. Please call with questions. Consult Attestations Medical Necessity Statement: Care expected to cross 2 midnights. Coding Level of Care Code Acute Code for g Fwd Diagnoses Chest pain R07.9 Atrial fibrillation I48.91 Chronic UTI (urinary tract infection) N39.0 Hypertension I10
[2022-12-12] VITALS (7 sets, daily range): BP systolic 101–131; BP diastolic 63–90; PULSE 93–113; RESP 17–23; TEMP 36.7–36.9; O2SAT 91–94
[2022-12-12] MEDS: acetaminophen 325 mg Tablet 650 MG PO (08:03)
[2022-12-12] MEDS: pantoprazole DR 40 mg Tablet PO (08:04)
[2022-12-12] MEDS: oxybutynin chloride XL 5 MG TABLET 10 MG PO (08:04)
[2022-12-12] MEDS: FUROsemide 20 mg Tablet PO (08:04)
[2022-12-12] MEDS: metoprolol tartrate 25 mg Tablet PO (08:04)
--- NOTE | 2022-12-12 09:08 | PM.PN ---
Subjective Subjective: Patient is stable. No chest pain. Vitals/I&O/Wt Last Vital Signs Temp 98.0 F 12/12/22 08:00 Pulse 113 H 12/12/22 08:00 Resp 18 12/12/22 08:00 BP 125/84 12/12/22 08:00 Pulse Ox 92 12/12/22 07:48 O2 Del Method Room Air 12/12/22 07:48 12/11/22 12/12/22 12/12/22 22:59 06:59 14:59 Intake Total 240 / 480 360 / 360 Balance 240 / 480 360 / 360 Weight last 48 hrs Weight 160 lb Physical Exam Narrative: GENERAL: Patient is alert, awake and oriented x3. [] NECK: No jugular vein distension. [] HEENT: No cyanosis. No icterus. No pallor. [] HEART: Irregularly irregular LUNGS: Clear to auscultate bilaterally. [] CENTRAL NERVOUS SYSTEM: Grossly nonfocal. [] EXTREMITIES: Lower extremities with no edema Data 12/11/22 03:07 12/11/22 03:07 A&P Assessment and plan (1) Atrial fibrillation: (2) Chronic UTI (urinary tract infection): (3) Hypertension: Plan Patient is stable. Decision made to medically treat her at this time. If has future chest pain, we can consider angiogram. Continue metoprolol. Thank you for involving us with care of this patient. Patient is stable to be discharged. Please call with questions. Attestations Medical Necessity Statement*: Care expected to cross 2 midnights. Coding Level of Care Code Acute Code for [facility] Diagnoses Atrial fibrillation I48.91 Chronic UTI (urinary tract infection) N39.0 Hypertension I10
--- NOTE | 2022-12-12 10:52 | PM.DCS ---
Discharge Providers Date of Admission: 12/10/22 17:16 Date of Discharge: December 12, 2022 Attending Provider at Admission: Vanessa Oconnor MD Attending Provider at Discharge: Vanessa Oconnor MD Primary Care Provider: Samantha Coello NP Diagnoses at Discharge Discharge Diagnosis (1) Chest pain: Status: Acute (2) Atrial fibrillation: Status: Acute (3) Chronic UTI (urinary tract infection): Status: Acute (4) Hypertension: Status: Acute Reason for Visit Reason for Visit: physician sent, chest heavy, had afib last week Hospital Course Hospital Course Bina Rodríguez is a 82 year old female Recently diagnosed with atrial fibrillation, recently started metoprolol and Xarelto presented to the emergency room complaining of chest pain. ?She was found to be in A-fib with heart rate ranging between 90 to 110 bpm. Did not show any acute ST-T wave changes. Troponin series 21 --> 13--? 17 without significant delta's. Due to her chest pain and recently diagnosed arrhythmia, she underwent ischemic evaluation with a stress test. 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 She was seen by cardiology, medical therapy was preferred as pain was atypical, thought to be likely related to A fib and CHF. Option of undergoing angiogram was discussed with the patient family, they would like to hold off for now. Patient had evidence of mild CHF, diagnosed as possibly acute CHF with preserved ejection fraction. She received treatment with Lasix during hospitalization. Stated that her breathing was much improved compared to admission. She additionally had lower extremity edema which is improved at the time of discharge. Metoprolol has been uptitrated to 50 mg p.o. twice daily and Lasix 20 mg has been ordered for as needed use for edema at the time of discharge. Event monitor arranged per cardiology recommendations. Follow-up with cardiology nurse practitioner in 1 week. Physical Exam Narrative: General: No acute distress, AO x3 HEENT: PERRLA, pupils bilaterally equal and reactive, pallors not present Chest: Normal vesicular breath sounds, no added sounds, equal good air entry bilaterally CVS: S1-S2 regular, no murmurs, no tachycardia, no gallops, no rubs Abdomen: Soft, nontender, no organomegaly, bowel sounds present Neuro: No focal deficits, no facial deformity, AO x3, power 5/5 in all limbs Discharge Data Studies Completed and Pending Completed Studies During Hospitalization Category Date Time Status Cardiac Stress Test MIBI [Sestamibi Stress Test Request Exams 12/10/22 17:34 Draft ] Stat XR chest 1V portable [id number] Stat Exams 12/10/22 13:11 Completed NM frankie perf SPECT r/s* [id number] Routine Nuc Med 12/11/22 08:00 Completed CV. echo complete* [id number] Routine Ultrasound 12/11/22 17:34 [place] liver [id number] Stat Ultrasound 12/10/22 14:26 Completed Radiology Impressions Chest X-Ray 12/10/22 13:11 IMPRESSION: No acute findings. Echo 12/11 CONCLUSIONS ?1. Normal left ventricular size, systolic function and wall ?thickness, with no regional wall motion abnormalities. Left ?ventricular ejection fraction is estimated at 55 %. ?2. Mild mitral and tricuspid valve regurgitation. ?3. Pulmonary artery pressure estimated at 38 mm Hg. ?4. Direct comparison to previous study dated 08/26/2018 is not ?possible due to difficult study. Laboratory Results WBC 7.8 10^3/uL (4.0-10.0) 12/11/22 03:07 RBC 4.33 10^6/uL (4.1-5.3) 12/11/22 03:07 Hgb 12.0 g/dL (11.5-15.3) 12/11/22 03:07 Hct 38.1 % (37.0-47.0) 12/11/22 03:07 MCV 88.0 fl (81-99) 12/11/22 03:07 MCH 27.7 pg (28.0-34.0) L 12/11/22 03:07 MCHC 31.5 g/dL (30.0-36.0) 12/11/22 03:07 RDW 13.7 % (12.1-15.1) 12/11/22 03:07 Plt Count 178 10^3/cmm (130-400) 12/11/22 03:07 MPV 9.4 fL (7.4-10.4) 12/11/22 03:07 Neut % (Auto) 55.3 % 12/11/22 03:07 Lymph % (Auto) 31.2 % 12/11/22 03:07 [place] % (Auto) 7.7 % 12/11/22 03:07 Eos % (Auto) 4.9 % 12/11/22 03:07 Baso % (Auto) 0.6 % 12/11/22 03:07 Neut # (Auto) 4.31 10^3/uL (1.8-7.7) 12/11/22 03:07 Lymph # (Auto) 2.4 10^3/uL (0.8-4.8) 12/11/22 03:07 [place] # (Auto) 0.6 10^3/uL (0.2-0.9) 12/11/22 03:07 Eos # (Auto) 0.4 10^3/uL (0.0-0.8) 12/11/22 03:07 Baso # (Auto) 0.1 10^3/uL (0.0-0.1) 12/11/22 03:07 Nucleated RBC % (auto) 0 % 12/11/22 03:07 Nucleated RBCs # 0.0 /100WBC 12/11/22 03:07 Sodium 144 mmol/L (136-145) 12/11/22 03:07 Potassium 3.8 mmol/L (3.5-5.1) 12/11/22 03:07 Chloride 108 mmol/L (98-107) H 12/11/22 03:07 Carbon Dioxide 26 mmol/L (22-29) 12/11/22 03:07 Anion Gap 13.8 (5-19) 12/11/22 03:07 BUN 17 mg/dL (8-23) 12/11/22 03:07 Creatinine 1.0 mg/dL (0.5-0.9) H 12/11/22 03:07 GFR Calculation Not Reportable 12/11/22 03:07 Glucose 93 mg/dL (65-115) 12/11/22 03:07 Calculated Osmolality 299 mOsm/kg (285-295) H 12/11/22 03:07 Calcium 9.7 mg/dL (8.5-10.5) 12/11/22 03:07 Magnesium 2.1 mg/dL (1.7-2.3) 12/11/22 03:07 Total Bilirubin 0.5 mg/dL (0.15-1.2) 12/11/22 03:07 AST 33 U/L (0-32) H 12/11/22 03:07 ALT 37 U/L (0-33) H 12/11/22 03:07 Alkaline Phosphatase 97 U/L (35-105) 12/11/22 03:07 Troponin T Baseline 21 ng/L (0-10) H 12/10/22 13:21 Troponin T 120 Minute 13.80 ng/L (0-10) H 12/10/22 16:20 Delta Troponin T -7.20 ABS# (0-10) L 12/10/22 16:20 Troponin T Hi Sens 6Hr 17.45 ng/L (0-10) H 12/10/22 19:31 Troponin T Hi Sens 6Hr Delta -3.55 ng/L (0-12) L 12/10/22 19:31 NT-Pro-B Natriuret Pep 3048 pg/mL (0-450) H 12/10/22 13:21 Total Protein 6.5 g/dL (6.6-8.7) L 12/11/22 03:07 Albumin 3.9 g/dL (3.5-5.2) 12/11/22 03:07 Globulin 2.6 g/dL (1.3-4.6) 12/11/22 03:07 Lipase 34 U/L (13-60) 12/10/22 13:21 TSH 1.25 uIU/mL (0.27-4.20) 12/10/22 16:20 Vitals Last Vital Signs Temp 98.0 F 12/12/22 08:00 Pulse 113 H 12/12/22 08:00 Resp 18 12/12/22 08:00 BP 125/84 12/12/22 08:00 Pulse Ox 92 12/12/22 07:48 O2 Del Method Room Air 12/12/22 07:48 Discharge Plan Discharge Patient Disposition: Home Condition: Stable Prescriptions: New furosemide 20 mg Tablet 20 mg PO PRN 30 Days Qty: 30 0RF Continued oxybutynin chloride 10 mg tablet extended release 24hr 10 mg PO DAILY 90 Days Qty: 90 1RF multivitamin Tablet 1 tab PO DAILY Xarelto 15 mg tablet 15 mg PO DAILY Qty: 30 2RF Rx Instructions: must administer with evening meal acetaminophen 500 mg Tablet 500 mg PO Q6H PRN (Reason: Pain) lutein 6 mg Capsule 6 mg PO DAILY Rx Instructions: give with meal/snack Ambien 5 mg tablet 5 mg PO BEDTIME PRN (Reason: insomnia) Hair, Skin and Nails (biotin) 10,000 mcg Tablet,Chewable 10,000 mcg PO DAILY Changed metoprolol tartrate 25 mg tablet 50 mg PO BID 30 Days Qty: 0 0RF Discharge Orders: Discharge Order (Routine); Ordered 12/12/22 Ordered By: Vanessa Oconnor Other Ambulatory Orders: MCT/Event Monitor 30 Days (Routine) Timeframe: 20221212 Facility: [facility] - Location: Radiology Ordered By: Vanessa Oconnor Referrals: Samantha Coello NP [Primary Care Provider] - Georgina Parker FNP [Nurse Practitioner] - 1 week Discharge Diet: Usual diet Discharge Activity: Resume usual activity Patient Instructions: Opioid Safety Discharge Attestations Time Spent in Discharge Care*: greater than 30 min Quality Metrics Clinical Quality Measures [ No reported AMI, CVA or VTE this stay] Coding Level of Care Code Acute Code for Chg Fwd Diagnoses Chest pain R07.9 Atrial fibrillation I48.91 Chronic UTI (urinary tract infection) N39.0 Hypertension I10
--- NOTE | 2022-12-12 13:24 | PC.NURSE ---
Patient was discharged. She is taken via wheelchair to car with her daughter. Discharge packet and personal belongings with patient.
== END 2022-12-12 13:24 | disposition home or self-care (01) ==
LOC: ER 17:04 → CSU 17:53
PROVIDERS: Admitting Provider Student in an Organized Health Care Education/Training Program; Emergency Provider Emergency Medicine; PCP Nurse Practitioner Family; Visit Provider Student in an Organized Health Care Education/Training Program
DX: R07.9 Chest pain, unspecified (principal); I48.91 Unspecified atrial fibrillation; N39.0 Urinary tract infection, site not specified; Z79.01 Long term (current) use of anticoagulants; I34.0 Nonrheumatic mitral (valve) insufficiency; I07.1 Rheumatic tricuspid insufficiency; I11.0 Hypertensive heart disease with heart failure; I50.9 Heart failure, unspecified; K80.20 Calculus of gallbladder without cholecystitis without obstruction; K76.0 Fatty (change of) liver, not elsewhere classified
CPT/HCPCS: 36415; 71045; 76705; 78452; 80053; 83690; 83735; 83880; 84443; 84484; 85025; 93005; 93017; 93306; 96375; 99285; A9500; G0378; J2405; J2785

== ENCOUNTER → 2022-12-17 14:07 | Outpatient (BNVA) | payer MEDICARE, SELFPAY | PROVIDERS: PCP Nurse Practitioner Family; Visit Provider Nurse Practitioner Family | DX: I11.0 Hypertensive heart disease with heart failure (principal); I50.9 Heart failure, unspecified; I48.91 Unspecified atrial fibrillation; Z79.01 Long term (current) use of anticoagulants | CPT/HCPCS: 99214 ==

== ENCOUNTER → 2023-01-19 11:23 | Outpatient (BNVA) | payer MEDICARE, SELFPAY | PROVIDERS: PCP Nurse Practitioner Family; Visit Provider Internal Medicine Cardiovascular Disease | DX: I11.0 Hypertensive heart disease with heart failure (principal); I50.9 Heart failure, unspecified; I48.91 Unspecified atrial fibrillation; Z79.01 Long term (current) use of anticoagulants | CPT/HCPCS: 99214 ==

== ENCOUNTER → 2023-06-09 12:11 | Outpatient (BNVA) | payer MEDICARE, SELFPAY | PROVIDERS: PCP Nurse Practitioner Family; Visit Provider Internal Medicine Cardiovascular Disease | DX: I10 Essential (primary) hypertension (principal); I48.91 Unspecified atrial fibrillation; R07.9 Chest pain, unspecified | CPT/HCPCS: 99213 ==

== ENCOUNTER → 2023-08-19 14:55 | Outpatient (BNVA) | payer MEDICARE, SELFPAY | PROVIDERS: PCP Nurse Practitioner Family; Visit Provider Nurse Practitioner Family | DX: N39.0 Urinary tract infection, site not specified (principal); R31.9 Hematuria, unspecified; G47.00 Insomnia, unspecified; N32.81 Overactive bladder; B37.9 Candidiasis, unspecified; I10 Essential (primary) hypertension | CPT/HCPCS: 80053; 85025 ==

== ENCOUNTER → 2023-12-16 16:22 | Outpatient (BNVA) | payer MEDICARE, SELFPAY | PROVIDERS: PCP Nurse Practitioner Family; Visit Provider Internal Medicine Cardiovascular Disease | DX: R07.9 Chest pain, unspecified (principal); I48.91 Unspecified atrial fibrillation | CPT/HCPCS: 93005; 99214 ==

== ENCOUNTER → 2023-12-29 11:42 | Outpatient (BNVA) | payer MEDICARE, SELFPAY | PROVIDERS: PCP Nurse Practitioner Family; Visit Provider Nurse Practitioner Family | DX: I48.20 Chronic atrial fibrillation, unspecified (principal); R94.31 Abnormal electrocardiogram [ECG] [EKG] | CPT/HCPCS: 36415; 80048; 85025; 93005; 99214 ==

== ENCOUNTER → 2024-01-19 14:47 | Outpatient (BNVA) | payer MEDICARE, SELFPAY | PROVIDERS: PCP Nurse Practitioner Family; Visit Provider Internal Medicine Cardiovascular Disease | DX: I48.20 Chronic atrial fibrillation, unspecified (principal); R60.0 Localized edema | CPT/HCPCS: 99214 ==

== ENCOUNTER → 2024-07-13 14:03 | Outpatient (BNVA) | payer MEDICARE, SELFPAY | PROVIDERS: Visit Provider Internal Medicine Cardiovascular Disease | DX: I10 Essential (primary) hypertension (principal); R00.2 Palpitations; I48.91 Unspecified atrial fibrillation | CPT/HCPCS: 99214 ==

== ENCOUNTER → 2024-07-20 14:35 | Outpatient (BNVA) | payer MEDICARE, SELFPAY | PROVIDERS: PCP Nurse Practitioner Family; Visit Provider Nurse Practitioner Family | DX: R39.9 Unspecified symptoms and signs involving the genitourinary system (principal); I48.20 Chronic atrial fibrillation, unspecified; I10 Essential (primary) hypertension | CPT/HCPCS: 80053; 80061; 81000; 84443; 85025 ==

== ENCOUNTER → 2024-08-10 15:22 | Outpatient (BNVA) | payer MEDICARE, SELFPAY | PROVIDERS: PCP Nurse Practitioner Family; Visit Provider Nurse Practitioner Family | DX: R39.9 Unspecified symptoms and signs involving the genitourinary system (principal); R31.9 Hematuria, unspecified | CPT/HCPCS: 81000; 87086 ==

== ENCOUNTER → 2025-02-07 15:22 | Outpatient (BNVA) | payer MEDICARE, SELFPAY | PROVIDERS: PCP Nurse Practitioner Family; Visit Provider Nurse Practitioner Family | DX: N39.0 Urinary tract infection, site not specified (principal); R53.83 Other fatigue; I10 Essential (primary) hypertension; I48.91 Unspecified atrial fibrillation; R39.9 Unspecified symptoms and signs involving the genitourinary system | CPT/HCPCS: 80053; 80061; 81003; 82306; 82607; 84443; 85025; 87086 ==

== ENCOUNTER 2025-02-20 15:34 | Outpatient (CLI) | payer MEDICARE, SELFPAY ==
--- NOTE | 2025-02-20 16:45 | USR_ITS ---
PROCEDURE INFORMATION: Exam: US Retroperitoneal, Complete, Kidneys and Bladder Exam date and time: 02/20/2025 3:42 PM Age: 84 years old Clinical indication: Other: Hematuria; Additional info: R31.9 - hematuria, unspecified TECHNIQUE: Imaging protocol: Real-time ultrasound of the retroperitoneum with image documentation. Complete exam focused on the bilateral kidneys and urinary bladder. COMPARISON: CT abdomen pelvis w con* [id number] 08/26/2018 4:47 PM FINDINGS: Right kidney: Normal. No stones. No hydronephrosis. 7.7 x 4.9 x 4.6 cm. Renal cortex 1 cm. Left kidney: Normal. No stones. No hydronephrosis. 9.1 x 4.9 x 4.1 cm. Renal cortex 1.3 cm. Urinary bladder: Unremarkable. US/US renal BI w/PV bladder [id number] IMPRESSION: Unremarkable kidneys and bladder.
== END 2025-02-20 15:35 | disposition home or self-care (01) ==
LOC: RAD 15:34
PROVIDERS: PCP Nurse Practitioner Family; Visit Provider Nurse Practitioner Family
DX: R31.9 Hematuria, unspecified (principal)
CPT/HCPCS: 76770; 76857